=== PATIENT | male | born 1950 | race Caucasian/White ===

== ENCOUNTER 2018-02-27 07:05 | Day surgery (SDC) | payer OTHER ==
[2018-02-27] MEDS: POLYMYXIN/BACITRACIN 1L IRRIG IRR (08:00)
[2018-02-27] MEDS: CEFAZOLIN 1 GM/50 ML (PMX) 50 ML IVPB ×2 (08:00→09:30)
[2018-02-27] MEDS: HEPARIN 1000 UNITS/ML 10 ML INJ ×2 (08:45→09:17)
[2018-02-27] MEDS: LIDOCAINE 1%/EPI 30 ML INJ (08:45)
[2018-02-27] MEDS: HEPARIN 1000 UNITS/NS (A-LINE) 0 ML (08:45)
[2018-02-27] MEDS: MIDAZOLAM 1 MG/ML 2 ML INJ (08:46)
[2018-02-27] MEDS: FENTAnyl 50 MCG/ML VIAL (09:45)
[2018-02-27] MEDS: SOD CHLORIDE 0.9% 1,000 ML IV (09:45)
== END 2018-02-27 11:20 | disposition home or self-care (01) ==
LOC: SDS 07:05
DX: C78.89 Secondary malignant neoplasm of other digestive organs (principal); I45.10 Unspecified right bundle-branch block; R00.1 Bradycardia, unspecified; E11.9 Type 2 diabetes mellitus without complications
CPT/HCPCS: 82962; 93005